=== PATIENT | female | born 1980 | race Caucasian/White ===

== ENCOUNTER 2020-01-22 20:22 | Observation (INO) | payer OTHER, SELFPAY ==
[~2020-01-22] VITALS: Ht 165.1 cm; Wt 99.8 kg
== END 2020-01-22 21:09 | disposition home or self-care (01) ==
LOC: SPU 20:22
PROVIDERS: ADMIT Obstetrics & Gynecology; ATTEND Obstetrics & Gynecology
DX: Z03.818 Encounter for observation for suspected exposure to other biological agents ruled out (principal); O42.92 Full-term premature rupture of membranes, unspecified as to length of time between rupture and onset of labor; Z3A.39 39 weeks gestation of pregnancy
CPT/HCPCS: G0378; U0003